=== PATIENT | female | born 1960 | race Caucasian/White ===

== ENCOUNTER → 2018-08-12 | Outpatient (CLI) | payer BC, SELFPAY ==
--- NOTE | 2018-08-12 07:35 | MRI_ITS ---
STUDY: MRI LUMBAR SPINE WITHOUT CONTRAST REASON FOR EXAM: Female, 57 years old. radiculopathy, LEFT LEG NUMBNESS. TECHNIQUE: Standardized fat and water weighted pulse sequences were obtained in the sagittal and axial planes. COMPARISON: None FINDINGS: T12-L1: There is minimal disc space narrowing and endplate spondylosis. There is no significant disc herniation, central canal or foraminal stenosis. Normal lumbar lordosis. There is no substantial scoliosis. Normal conus medullaris that terminates at the L1 L1-2: There is mild disc space narrowing and endplate spondylosis. There is no significant disc herniation, central canal or foraminal stenosis. L2-3: There is mild disc space narrowing and endplate spondylosis. There is no significant disc herniation, central canal or foraminal stenosis. L3-4: There is moderate disc space narrowing and endplates spondylosis. Mild disc bulge and facet arthropathy without significant central canal stenosis. There is no right foraminal stenosis cyst stress. There is mild left foraminal stenosis. L4-5: There is severe disc space narrowing and endplates spondylosis. Moderate disc osteophyte complex and facet arthropathy without significant central canal stenosis. Moderate right and mild left foraminal stenosis. L5-S1: There is moderate disc space narrowing and endplates spondylosis. There is spondylolysis with grade 1 anterolisthesis and disc uncovering with mild central canal stenosis. There is severe right and severe left foraminal stenosis. MRI/Spine Lumbar (Routine) IMPRESSION: L4/L5: Moderate right foraminal stenosis. L5/S1: Spondylolysis with grade 1 anterolisthesis. Severe bilateral foraminal stenosis. Electronically Signed: Janessa Tobias MD at 15:56 EDT Tel , Service support ,
== END | disposition home or self-care (01) ==
LOC: MRI 07:34
PROVIDERS: Family Provider Family Medicine; PCP Family Medicine; Referring Provider Family Medicine; Visit Provider Family Medicine
DX: M54.16 Radiculopathy, lumbar region (principal)
CPT/HCPCS: 72148